=== PATIENT | male | born 1985 | race Caucasian/White ===

== ENCOUNTER 2022-11-04 10:46 | Emergency (ER) | payer SELFPAY ==
[~2022-11-04] VITALS: Ht 177.8 cm; Wt 96.2 kg
[2022-11-04 10:50] VITALS: BP 132/89
[2022-11-04] MEDS ORDERED: ACHD5005 PO (11:19)
--- NOTE | 2022-11-04 11:23 | ED Lower Extremity ---
General Chief Complaint: Lower Extremity Stated Complaint: RT LEG INJ Nursing Triage Note: Patient reports he slipped on some ice last night and fell, landing on his right knee. He reports continued pain in his right knee, states he took mobic around 10 am today. Source: patient History of Present Illness Date Seen by Provider: Nov 04, 2022 Time Seen by Provider: 10:48 Initial Comments 37-year-old male presenting with complaints of pain to his right knee. He states he slipped on some ice last night and fell landing on his knee. He took his regular meloxicam this morning around 10 AM. He takes for pain in his hands and face from old injury requiring surgery and multiple plates in his face for reconstruction. He denies hitting his head or losing consciousness when he fell last night. He has some mild swelling to the right knee and increased pain with trying to bear weight or bend his knee. He denies having prior injury or problems with the knee. He has seen Dr. SANCHEZ to get the meloxicam but states he does not follow-up with any provider routinely. Onset: yesterday Severity: severe Pain/Injury Location: right knee Method of Injury: direct blow, fell Modifying Factors: Worse With Movement Allergies and Home Medications Allergies Coded Allergies: No Known Drug Allergies (Unverified , 11/04/22) Patient Home Medication List Home Medication List Reviewed: Yes Hydrocodone/Acetaminophen (Hydrocodone-Acetamin 5-325 mg) 5 Mg-325 Mg Tablet, 1 TAB PO Q6H PRN for PAIN-SEVERE (8-10) Prescribed by: WILLIAM JONES on 11/04/22 1119 Review of Systems Constitutional: No chills, No fever EENTM: no symptoms reported Respiratory: no symptoms reported Cardiovascular: no symptoms reported Gastrointestinal: no symptoms reported Genitourinary: no symptoms reported Musculoskeletal: see HPI Skin: No change in color Psychiatric/Neurological: No Symptoms Reported Past Fxzskai-Ucnnbf-Lbymvy Hx Patient Social History Tobacco Use?: No Substance use?: No Alcohol Use?: Yes Pt feels they are or have been: No Past Medical History Surgery/Hospitalization HX: Facial surgery Surgeries: Yes Physical Exam Vital Signs Vital Signs - First Documented 11/04/22 10:50 Temp 37.1 Pulse 87 Resp 16 B/P (MAP) 132/89 (103) Pulse Ox 97 O2 Delivery Room Air Capillary Refill : Less Than 3 Seconds Height, Weight, BMI Height: '" Weight: lbs. oz. 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 This was done after x-rays and shown that he had comminuted fracture of the lower third to half of his patella on the right side. Counseled on follow-up and return precautions. Advised to wear the knee immobilizer at all times until he follows up with orthopedics. Counseled that the more he has his knee immobilizer off the more he could move his knee and possibly separate the fracture components further. Patient was neurovascular and tendon intact both pre and post splinting. Ordered: Crutches Progress/Results/Core Measures Results/Orders My Orders Orders - WILLIAM JONES MD Ice: Apply To Affected Area (11/04/22 10:57) Knee 3 View Right (11/04/22 10:57) Knee Immobilizer (11/04/22 11:14) Crutches (11/04/22 11:14) Rx-Hydrocodone/Apap 5-325 Mg (Rx-Vicodin (11/04/22 11:15) Vital Signs/I&O 11/04/22 10:50 Temp 37.1 Pulse 87 Resp 16 B/P (MAP) 132/89 (103) Pulse Ox 97 O2 Delivery Room Air Blood Pressure Mean: 103 Progress Progress Note #1: Progress Note Order x-rays to look at the right knee for acute bony injury after the fall. Ice and elevate his knee to help with pain. Progress Note #2: Progress Note On my personal review and interpretation of his 3 views of the right knee he has comminuted slightly displaced fracture of the lower third of his patella. No other acute bony abnormality seen. We will order a knee immobilizer and cr utches for limited weightbearing and to restrict movement of his knee. Ice and elevation stressed as they can help with swelling and pain. Prescribed hydrocodone/acetaminophen 5/325 mg pills 1 every 6 hours as needed for severe pain. Give 4 pills from here and a take-home pack since the pharmacies are all closed. Prescription sent to [facility] for pickup tomorrow when the pharmacy is open again. Counseled to follow-up with orthopedics for management and care of his fracture. Stressed importance of calling tomorrow morning to get an appointment within this next week. Given 3 options of orthopedic doctors and providers to follow-up with. Also counseled that he could follow-up with a primary care clinic such as [facility] or Dr. SANCHEZ for continued pain control Diagnostic Imaging Diagonstic Imaging: Xray Plain Films/CT/US/NM/MRI: knee Comments NAME: NICOLA KENDALL MED REC#: [id number] PT STATUS: REG ER : 1985 PHYSICIAN: WILLIAM JONES MD ADMIT DATE: 11/04/22/ER FS Draft Date of Exam:11/04/22 KNEE 3 VIEW RIGHT INDICATION: Injury with pain FINDINGS: there are parallel horizontal fractures involving the lower 3rd of the patella with the cephalad fracture may be incomplete and presents as a focal denting of the anterior cortex. The caudal fracture may extend through the articular surface but is nondisplaced. There is prepatellar soft tissue swelling but no findings of a joint effusion. The distal femur, proximal tibia and fibula intact. IMPRESSION: Horizontal lower 3rd patellar fractures without displacement prepatellar edema and swelling but no appreciable joint effusion or evidence for articular offset. Dictated on workstation # [id number] Dict: 11/04/22 1113 Trans: 11/04/22 1131 [facility] [id number] Interpreted by: NELA AKHTAR Electronically signed by: Reviewed: Reviewed by Me Departure Impression Primary Impression: Traumatic closed fracture of right patella with minimal displacement Qualified Codes: S82.001A - Unspecified fracture of right patella, initial encounter for closed fracture Additional Impressions: Fall due to slipping on ice or snow Qualified Codes: W00.9XXA - Unspecified fall due to ice and snow, initial encounter Pain of right knee after injury Disposition: 01 HOME, SELF-CARE Condition: Stable Departure-Patient Inst. Decision time for Depature: 11:17 Referrals: ALINE ZAVALA NO,LOCAL PHYSICIAN (PCP) Primary Care Physician BARRERA RODRIGUES MD, MICHAEL P MD [facility] Patient Instructions: How to Use Crutches, Knee Brace ED, Knee Pain ED, Opioids for Short-Term Treatment of Pain ED, Patella Fracture ED, Using Cold for Pain Add. Discharge Instructions: Use the knee immobilizer to stabilize your knee. Wear this at all times until you follow up with Orthopedics. Use the crutches to keep from bearing weight on the right leg. You could toe touch to help with walking but do not put your full weight on the right leg. Try to elevate your leg above waist level to help with swelling and pain. Ice 15-30 minutes every few hours as needed for pain and swelling. Take the pain medicine to help with severe pain. It can cause constipation so consider taking a laxative to help prevent that. Call Orthopedic clinic Saturday to see about follow up appointment this week with Nurse Practitioner Manfred Zavala here in [place] or Dr. Blcak in [place]. Dr. Rodrigues is another option for follow up as he starts seeing patients here in [place] on 11/08. All discharge instructions reviewed with patient and/or family. Voiced understanding. Scripts Hydrocodone/Acetaminophen (Hydrocodone-Acetamin 5-325 mg) 5 Mg-325 Mg Tablet 1 TAB PO Q6H PRN for PAIN-SEVERE (8-10) for 5 Days, #20 TAB 0 Refills Prov: WILLIAM JONES MD 11/04/22 WILLIAM JONES MD Nov 04, 2022 11:23
--- NOTE | 2022-11-04 11:32 | Diagnostic Imaging Report ---
INDICATION: Injury with pain FINDINGS: there are parallel horizontal fractures involving the lower 3rd of the patella with the cephalad fracture may be incomplete and presents as a focal denting of the anterior cortex. The caudal fracture may extend through the articular surface but is nondisplaced. There is prepatellar soft tissue swelling but no findings of a joint effusion. The distal femur, proximal tibia and fibula intact. IMPRESSION: Horizontal lower 3rd patellar fractures without displacement prepatellar edema and swelling but no appreciable joint effusion or evidence for articular offset. Dictated by: Dictated on workstation # [id number]
== END 2022-11-04 11:43 | disposition home or self-care (01) ==
LOC: EDUNIT# 10:46 → ER FS 10:48
DX: S82.001A Unspecified fracture of right patella, initial encounter for closed fracture (principal); Z28.310 Unvaccinated for COVID-19; W00.0XXA Fall on same level due to ice and snow, initial encounter
CPT/HCPCS: 73562; 99283; L1830

== ENCOUNTER → 2022-11-22 | Outpatient (CLI) | payer SELFPAY ==
[~2022-11-22] MED LIST: ACHD5005 PO
--- NOTE | 2022-11-22 14:51 | Diagnostic Imaging Report ---
INDICATION: Patellar fracture. AP and lateral views of the right knee are obtained. COMPARISON: 11/04/2022 Comminuted fractured the inferior portion patella is noted, with predominantly horizontal orientation. The appearance has not changed compared to the prior study. There is no other bone abnormality seen. There is no definite joint effusion. IMPRESSION: Stable alignment of patellar fracture with no new abnormality. Dictated by: Dictated on workstation # [id number]
== END ==
LOC: RAD FS 10:42
PROVIDERS: ATTEND Nurse Practitioner
DX: S82.034D Nondisplaced transverse fracture of right patella, subsequent encounter for closed fracture with routine healing (principal); X58.XXXD Exposure to other specified factors, subsequent encounter
CPT/HCPCS: 73560